=== PATIENT | female | born 1990 | race Caucasian/White ===

== ENCOUNTER → 2020-06-13 | Outpatient (CLI) | payer OTHER ==
[~2020-06-13] MED LIST: BIRTH CONTROL1 EAC1 PO; CATAFLAM50 MG PO; TRAMADOL HCL50 MG PO
== END | disposition home or self-care (01) ==
LOC: US 14:47
DX: O34.81 Maternal care for other abnormalities of pelvic organs, first trimester (principal); N83.12 Corpus luteum cyst of left ovary; Z3A.11 11 weeks gestation of pregnancy